=== PATIENT | male | born 1970 | race Caucasian/White ===

== ENCOUNTER 2016-10-08 10:36 | Emergency (ER) | payer SELFPAY ==
[~2016-10-08] VITALS: Ht 185.4 cm; Wt 93.2 kg
[2016-10-08 11:03] VITALS: BP 139/103
[2016-10-08] MEDS ORDERED: LISI-662 PO (11:17)
[2016-10-08] MEDS ORDERED: METF500T4 PO (11:17)
[2016-10-08] MEDS ORDERED: CLOP75 PO (11:17)
[2016-10-08] MEDS ORDERED: METO50 PO (11:17)
== END 2016-10-08 12:16 | disposition left against medical advice (07) ==
LOC: EMS 10:38
DX: H57.12 Ocular pain, left eye (principal); H53.8 Other visual disturbances; E11.9 Type 2 diabetes mellitus without complications; I10 Essential (primary) hypertension; F17.210 Nicotine dependence, cigarettes, uncomplicated; Z53.21 Procedure and treatment not carried out due to patient leaving prior to being seen by health care provider

== ENCOUNTER 2016-10-12 21:20 | Emergency (ER) | payer OTHER ==
[~2016-10-12] VITALS: Ht 185.4 cm; Wt 93.2 kg
[~2016-10-12 21:20] MED LIST: CLOP75 PO; LISI-662 PO; METF500T4 PO; METO50 PO
[2016-10-12] MEDS ORDERED: ASPI-556 PO (21:30)
[2016-10-12] MEDS ORDERED: PRED20 PO (21:30)
[2016-10-12 21:48] LABS: ADD UA MICROSCOPIC YES; APPEARANCE,URINE CLEAR (CLEAR); GLUCOSE, URINE (UA) 500 mg/dL (NEGATIVE); KETONES,URINE NEGATIVE (NEGATIVE); LEUKOCYTE ESTERASE ,URINE NEGATIVE (NEGATIVE); OCCULT BLOOD,URINE NEGATIVE (NEGATIVE); PROTEIN,URINE POS 1+ (NEGATIVE)
[2016-10-12 21:52] LABS: GLUCOSE,POINT OF CARE 154 MG/DL (70-110)
[2016-10-12 21:56] LABS: RBC,URINE None Seen /HPF (0-2); SQUAMOUS EPITHELIAL CELL,UR Rare /LPF (None Seen); WBC,URINE None Seen /HPF (0-5)
[2016-10-12] MEDS ORDERED: ACTIVATED CHARCOAL 50 GM/240 ML SUSPENSION PO ONE (22:00)
[2016-10-12] MEDS ORDERED: SODIUM CHLORIDE 0.9% 1,000 ML IV ONE (22:00)
[2016-10-12 22:03] LABS: BASOPHILS % (AUTO) 0.7 % (0.0-2.0); EOSINOPHILS % (AUTO) 1.4 % (1.0-6.0); LYMPHOCYTES # (AUTO) 1.5 K/uL (1.0-4.8); LYMPHOCYTES % (AUTO) 17.7 % (22.0-44.0); MEAN CORPUSCULAR HEMOGLOBIN 27.9 pg (26.0-34.0); MEAN CORPUSCULAR HGB CONC 32.3 G/dL (31.0-37.0); MEAN CORPUSCULAR VOLUME 86 fL (80-100); MONOCYTES # (AUTO) 0.5 K/uL (0.1-1.0); MONOCYTES % (AUTO) 5.4 % (2.0-9.0); NEUTROPHILS # (AUTO) 6.3 K/uL (1.8-7.7); NEUTROPHILS % (AUTO) 74.8 % (40.0-70.0); PLATELET COUNT (AUTO) 371 K/uL (150-450); RED BLOOD CELL COUNT(AUTO) 4.28 MIL/uL (4.50-5.90); RED CELL DISTRIBUTION WIDTH 14.2 % (11.5-14.5); WHITE BLOOD COUNT (AUTO) 8.5 K/uL (4.5-11.0)
[2016-10-12 22:13] LABS: ANION GAP 5 mmol/L (8-16); CARBON DIOXIDE 31 mmol/L (22-29); CHLORIDE 104 mmol/L (98-107); CREATININE 0.93 mg/dL (0.60-1.30); GLOMERULAR FILTR. RATE CALC > 60 mL/min (>60); POTASSIUM 3.6 mmol/L (3.5-5.1); SODIUM SERUM 140 mmol/L (136-145); UREA NITROGEN, BLOOD 8 mg/dL (7-18)
[2016-10-12 22:27] LABS: SALICYLATE 1.8 mg/dL (2.8-20.0)
[2016-10-12 22:38] LABS: ALANINE AMINOTRANSFERASE 26 U/L (12-78); ALBUMIN 3.6 g/dL (3.4-5.0); ASPARTATE AMINOTRANSFERASE 17 U/L (15-37); BILIRUBIN,TOTAL 0.4 mg/dL (0.1-1.0); CREATINE KINASE, TOTAL 80 U/L (39-308)
[2016-10-12 22:38] LABS: ALLEN TEST, BLOOD GAS POS; HCO3,VENOUS BLOOD GAS 24.3 (21.0-28.0); PCO2,VENOUS BLOOD GAS 40 (40-45); PH,VENOUS BLOOD GAS 7.412 (7.360-7.410); TEMPERATURE, FAHRENHEIT, BG 98.4 FAHREN (96.0-98.6); TOTAL HEMOGLOBIN,VENOUS BGAS 11.6 (12.0-18.0)
[2016-10-12 22:39] LABS: ACETAMINOPHEN < 2 mcg/mL (10-30); CREATINE KINASE MB < 0.5 ng/mL (0-5)
[2016-10-13] MEDS ORDERED: LORazepam 2 MG/ML VIAL IVP ONE (01:00)
[2016-10-13 01:19] LABS: ALANINE AMINOTRANSFERASE 26 U/L (12-78); ALBUMIN 3.2 g/dL (3.4-5.0); ANION GAP 7 mmol/L (8-16); ASPARTATE AMINOTRANSFERASE 19 U/L (15-37); BILIRUBIN,TOTAL 0.3 mg/dL (0.1-1.0); CALCIUM, TOTAL 8.6 mg/dL (8.8-10.5); CARBON DIOXIDE 28 mmol/L (22-29); CHLORIDE 105 mmol/L (98-107); CREATININE 0.86 mg/dL (0.60-1.30); GLOMERULAR FILTR. RATE CALC > 60 mL/min (>60); POTASSIUM 4.1 mmol/L (3.5-5.1); SODIUM SERUM 140 mmol/L (136-145); TOTAL PROTEIN, SERUM 8.2 g/dL (6.4-8.2); UREA NITROGEN, BLOOD 8 mg/dL (7-18)
[2016-10-13 01:25] LABS: SALICYLATE < 2.8 mg/dL (2.8-20.0)
[2016-10-13 02:12] VITALS: BP 141/76
== END 2016-10-13 02:13 | disposition home or self-care (01) ==
LOC: EMS 21:21
DX: T39.012A Poisoning by aspirin, intentional self-harm, initial encounter (principal); T38.0X2A Poisoning by glucocorticoids and synthetic analogues, intentional self-harm, initial encounter; I11.0 Hypertensive heart disease with heart failure; I50.9 Heart failure, unspecified; E11.9 Type 2 diabetes mellitus without complications; F31.9 Bipolar disorder, unspecified; F17.210 Nicotine dependence, cigarettes, uncomplicated; Z95.1 Presence of aortocoronary bypass graft; Z79.82 Long term (current) use of aspirin; Y92.89 Other specified places as the place of occurrence of the external cause
CPT/HCPCS: 36415; 71010; 80053; 80307; 81001; 82550; 82553; 82805; 82962; 84484; 85025; 93005; 96361; 96374; 99285; G0480 ×2; J2060; J7030; G0481

== ENCOUNTER 2017-05-08 18:57 | Emergency (ER) | payer MEDICAID, OTHER ==
[~2017-05-08] VITALS: Ht 188 cm; Wt 84.1 kg
[~2017-05-08 18:57] MED LIST changes: +ARIP10TA8 PO; +ASPI-556 PO; +FERR-89 PO; +MIRT15 PO; +VITAD1000 PO
[2017-05-08] MEDS ORDERED: LISINOPRIL 10 MG TABLET PO ONE (19:15)
[2017-05-08] MEDS ORDERED: BACITRACIN 0.9 GM PACKET OINTMENT TP ONE (19:15)
[2017-05-08] MEDS ORDERED: OxyCODONE HCL/ACETAMINOPHEN 5-325 MG TABLET PO ONE (19:15)
[2017-05-08] MEDS ORDERED: LORazepam 2 MG TABLET PO ONE (19:15)
[2017-05-08 19:23] LABS: GLUCOSE,POINT OF CARE 134 MG/DL (70-110)
[2017-05-08] MEDS ORDERED: ONDANSETRON HCL 4 MG/2 ML VIAL IM ONE (19:45)
[2017-05-08] MEDS ORDERED: METOPROLOL TARTRATE 50 MG TABLET PO ONE (20:15)
[2017-05-08 22:10] VITALS: BP 152/92
[2017-05-09] MEDS ORDERED: METO25 PO (11:27)
== END 2017-05-08 23:54 | disposition home or self-care (01) ==
LOC: EMS 19:00
DX: F31.9 Bipolar disorder, unspecified (principal); I10 Essential (primary) hypertension; E11.9 Type 2 diabetes mellitus without complications; I25.10 Atherosclerotic heart disease of native coronary artery without angina pectoris; I11.0 Hypertensive heart disease with heart failure; I50.9 Heart failure, unspecified; F17.210 Nicotine dependence, cigarettes, uncomplicated; F11.90 Opioid use, unspecified, uncomplicated; Z91.19 Patient's noncompliance with other medical treatment and regimen; Z02.89 Encounter for other administrative examinations; Z88.0 Allergy status to penicillin; Z95.5 Presence of coronary angioplasty implant and graft; Z88.2 Allergy status to sulfonamides; Z79.82 Long term (current) use of aspirin
CPT/HCPCS: 82962; 96372; 99285; J2405; 96360

== ENCOUNTER 2017-05-08 19:00 | Inpatient (IN) | payer MEDICAID ==
[~2017-05-08] VITALS: Ht 185.4 cm; Wt 80.3 kg
[~2017-05-08 19:00] MED LIST changes: +INFLUENZA VIRUS VACCINE QVS 2017-18 (3YR+)/PF 60 MCG/0.5 ML SYRINGE IM ONE
[2017-05-09] MEDS ORDERED: ZOLPIDEM TARTRATE 10 MG TABLET PO PRN (01:00)
[2017-05-09] MEDS ORDERED: HALOPERIDOL 5 MG TABLET PO PRN (01:00)
[2017-05-09 01:14] VITALS: BP 141/76
[2017-05-09 01:29] VITALS: BP 141/76
[2017-05-09] MEDS: LORazepam 2 MG TABLET PO PRN ×2 (02:54→17:15)
[2017-05-09 05:45] LABS: BASOPHILS # (AUTO) 0.09 K/uL (0.00-0.20); BASOPHILS % (AUTO) 0.8 % (0.0-2.0); EOSINOPHILS # (AUTO) 0.05 K/uL (0.00-0.70); EOSINOPHILS % (AUTO) 0.49 % (1.0-6.0); HEMATOCRIT 37.7 % (41-53); HEMOGLOBIN 12.3 g/dL (13.5-17.5); LYMPHOCYTES # (AUTO) 1.7 K/uL (1.0-4.8); LYMPHOCYTES % (AUTO) 15.1 % (22.0-44.0); MEAN CORPUSCULAR HEMOGLOBIN 27.3 pg (26.0-34.0); MEAN CORPUSCULAR HGB CONC 32.6 G/dL (31.0-37.0); MEAN CORPUSCULAR VOLUME 84 fL (80-100); MONOCYTES # (AUTO) 0.6 K/uL (0.1-1.0); MONOCYTES % (AUTO) 5.2 % (2.0-9.0); NEUTROPHILS # (AUTO) 8.8 K/uL (1.8-7.7); NEUTROPHILS % (AUTO) 78.4 % (40.0-70.0); PLATELET COUNT (AUTO) 356 K/uL (150-450); RED BLOOD CELL COUNT(AUTO) 4.51 MIL/uL (4.50-5.90)
[2017-05-09 06:15] LABS: ALANINE AMINOTRANSFERASE 32 U/L (12-78); ALBUMIN 3.2 g/dL (3.4-5.0); ALKALINE PHOSPHATASE 127 U/L (46-116); ANION GAP 6 mmol/L (8-16); ASPARTATE AMINOTRANSFERASE 19 U/L (15-37); BILIRUBIN,TOTAL 0.6 mg/dL (0.1-1.0); CALCIUM, TOTAL 8.7 mg/dL (8.8-10.5); CARBON DIOXIDE 28 mmol/L (22-29); CHLORIDE 101 mmol/L (98-107); CHOL/HDL RATIO 4.5 (4.2-7.3); CHOLESTEROL 191 mg/dL (131-200); CREATININE 0.65 mg/dL (0.60-1.30); GLOMERULAR FILTR. RATE CALC > 60 mL/min (>60); GLUCOSE,RANDOM 117 mg/dL (70-110); HDL CHOLESTEROL 42 mg/dL (40-60); LDL CHOL (CALC.) 137 mg/dL (0-130); POTASSIUM 3.9 mmol/L (3.5-5.1); SODIUM SERUM 135 mmol/L (136-145); TOTAL PROTEIN, SERUM 7.3 g/dL (6.4-8.2); TRIGLYCERIDES 60 mg/dL (15-150); UREA NITROGEN, BLOOD 12 mg/dL (7-18)
[2017-05-09] MEDS: MetFORMIN HCL 500 MG TABLET PO SCH ×2 (06:43→17:09)
[2017-05-09] MEDS: FERROUS SULFATE 325 MG EC TABLET PO SCH ×2 (06:43→17:09)
[2017-05-09] MEDS ORDERED: DEXTROSE 50%-WATER 25 GM/50 ML SYG IVP PRN (07:15)
[2017-05-09] MEDS ORDERED: INSULIN ASPART 100 UNITS/ML SQ PRN (07:15)
[2017-05-09] MEDS ORDERED: GLUCAGON,HUMAN RECOMBINANT 1 MG VIAL IM PRN (07:15)
[2017-05-09 08:30] VITALS: BP 102/59
[2017-05-09] MEDS: CLOPIDOGREL BISULFATE 75 MG TABLET PO SCH (08:30)
[2017-05-09] MEDS: LISINOPRIL 20 MG TABLET PO SCH (08:31)
[2017-05-09] MEDS: CHOLECALCIFEROL (VIT D3) 1,000 UNITS TABLET PO SCH (08:31)
[2017-05-09] MEDS: ASPIRIN 81 MG CHEWABLE TABLET PO SCH (08:32)
[2017-05-09] MEDS: METOPROLOL TARTRATE 25 MG TABLET PO SCH (08:32)
[2017-05-09] MEDS: ARIPiprazole 10 MG TABLET PO SCH ×2 (09:00→11:43)
[2017-05-09] MEDS ORDERED: METO25 PO (11:27)
[2017-05-09] MEDS: CEPHALEXIN MONOHYDRATE 500 MG CAPSULE PO SCH ×2 (12:29→17:09)
[2017-05-09 14:01] VITALS: BP 138/74
[2017-05-09] MEDS ORDERED: ACETAMINOPHEN 325 MG TABLET PO PRN (14:15)
[2017-05-09] MEDS ORDERED: SULFAMETHOX/TRIMETH DS 800-160 MG/TABLET PO SCH (17:00)
[2017-05-09 17:10] VITALS: BP 110/61
[2017-05-09 17:28] LABS: GLUCOMETER DEV NAME(LOC) 3EI B; GLUCOSE,POINT OF CARE 94 MG/DL (70-110)
[2017-05-09] MEDS ORDERED: IBUPROFEN 400 MG TABLET PO PRN (17:30)
[2017-05-09] MEDS: INSULIN ASPART 100 UNITS/ML SQ PRN (17:37)
[2017-05-09] MEDS ORDERED: MIRTAZAPINE 15 MG TABLET PO SCH (21:00)
[2017-05-10 04:15] VITALS: BP 102/53
[2017-05-10 06:23] LABS: GLUCOMETER DEV NAME(LOC) 3EI B; GLUCOSE,POINT OF CARE 87 MG/DL (70-110)
[2017-05-10] MEDS: FERROUS SULFATE 325 MG EC TABLET PO SCH (06:32)
[2017-05-10] MEDS: MetFORMIN HCL 500 MG TABLET PO SCH (06:32)
[2017-05-10] MEDS: METOPROLOL TARTRATE 25 MG TABLET PO SCH (09:00)
[2017-05-10] MEDS: LISINOPRIL 20 MG TABLET PO SCH (09:00)
[2017-05-10 10:15] VITALS: BP 98/56
[2017-05-10] MEDS: ASPIRIN 81 MG CHEWABLE TABLET PO SCH (10:21)
[2017-05-10] MEDS: ARIPiprazole 10 MG TABLET PO SCH (10:21)
[2017-05-10] MEDS: CLOPIDOGREL BISULFATE 75 MG TABLET PO SCH (10:21)
[2017-05-10] MEDS: CHOLECALCIFEROL (VIT D3) 1,000 UNITS TABLET PO SCH (10:22)
[2017-05-10] MEDS: CEPHALEXIN MONOHYDRATE 500 MG CAPSULE PO SCH ×2 (10:22→13:19)
[2017-05-10] MEDS ORDERED: MULTIVITAMINS WITH MINERALS, THERAPEUTIC TABLET PO SCH (11:30)
[2017-05-10 11:59] LABS: GLUCOMETER DEV NAME(LOC) 3EI B; GLUCOSE,POINT OF CARE 87 MG/DL (70-110)
[2017-05-10] MEDS: INSULIN ASPART 100 UNITS/ML SQ PRN (13:25)
== END 2017-05-10 15:37 | disposition short-term general hospital (02) | DRG 754 ==
LOC: EDSTATUS 19:00 → 3EI 22:49 → EDSTATUS 23:23
PROVIDERS: ADMIT Psychiatry & Neurology Child & Adolescent Psychiatry; ATTEND Psychiatry & Neurology Child & Adolescent Psychiatry
DX: F32.9 Major depressive disorder, single episode, unspecified (principal); E11.9 Type 2 diabetes mellitus without complications; I10 Essential (primary) hypertension; E78.5 Hyperlipidemia, unspecified; I25.10 Atherosclerotic heart disease of native coronary artery without angina pectoris; W34.00XA Accidental discharge from unspecified firearms or gun, initial encounter; Z79.02 Long term (current) use of antithrombotics/antiplatelets; Z79.82 Long term (current) use of aspirin; Z95.1 Presence of aortocoronary bypass graft; Z95.5 Presence of coronary angioplasty implant and graft; Z88.0 Allergy status to penicillin; Z88.2 Allergy status to sulfonamides
CPT/HCPCS: 82962; 87081; 90471

== ENCOUNTER 2017-05-10 16:00 | Inpatient (IN) | payer OTHER ==
[~2017-05-10] VITALS: Ht 185.4 cm; Wt 80.9 kg
[~2017-05-10 16:00] MED LIST changes: -INFLUENZA VIRUS VACCINE QVS 2017-18 (3YR+)/PF 60 MCG/0.5 ML SYRINGE IM ONE; +METO25 PO; -METO50 PO
[2017-05-10 16:21] VITALS: BP 119/70
[2017-05-10] MEDS ORDERED: SODIUM CHLORIDE 0.9% 1,000 ML IV ONE ×2 (17:15→17:45)
[2017-05-10] MEDS: OxyCODONE HCL/ACETAMINOPHEN 5-325 MG TABLET PO PRN (17:40)
[2017-05-10 17:42] LABS: BASOPHILS % (AUTO) 0.8 % (0.0-2.0); EOSINOPHILS % (AUTO) 2.5 % (1.0-6.0); HEMATOCRIT 35.9 % (41-53); LYMPHOCYTES # (AUTO) 1.9 K/uL (1.0-4.8); LYMPHOCYTES % (AUTO) 26.8 % (22.0-44.0); MEAN CORPUSCULAR HEMOGLOBIN 27.8 pg (26.0-34.0); MEAN CORPUSCULAR HGB CONC 33.5 G/dL (31.0-37.0); MEAN CORPUSCULAR VOLUME 83 fL (80-100); MONOCYTES # (AUTO) 0.5 K/uL (0.1-1.0); NEUTROPHILS # (AUTO) 4.4 K/uL (1.8-7.7); NEUTROPHILS % (AUTO) 62.9 % (40.0-70.0); PLATELET COUNT (AUTO) 337 K/uL (150-450); RED BLOOD CELL COUNT(AUTO) 4.33 MIL/uL (4.50-5.90); RED CELL DISTRIBUTION WIDTH 15.4 % (11.5-14.5)
[2017-05-10] MEDS ORDERED: ONDANSETRON HCL 4 MG/2 ML VIAL IVP PRN (17:45)
[2017-05-10] MEDS ORDERED: BISACODYL 10 MG RECTAL RECTAL SUPPOSITORY PR PRN (17:45)
[2017-05-10] MEDS ORDERED: MAGNESIUM HYDROXIDE SUSPENSION 30 ML UDCUP PO PRN (17:45)
[2017-05-10] MEDS ORDERED: ACETAMINOPHEN 325 MG TABLET PO PRN (17:45)
[2017-05-10 17:52] LABS: ANION GAP 5 mmol/L (8-16); CALCIUM, TOTAL 8.5 mg/dL (8.8-10.5); CARBON DIOXIDE 28 mmol/L (22-29); CHLORIDE 100 mmol/L (98-107); CREATININE 0.82 mg/dL (0.60-1.30); GLOMERULAR FILTR. RATE CALC > 60 mL/min (>60); POTASSIUM 3.6 mmol/L (3.5-5.1); SODIUM SERUM 133 mmol/L (136-145); UREA NITROGEN, BLOOD 21 mg/dL (7-18)
[2017-05-10 19:30] VITALS: BP 107/65
[2017-05-10] MEDS: ZOLPIDEM TARTRATE 5 MG TABLET PO PRN (21:58)
[2017-05-10] MEDS: DOCUSATE SODIUM 100 MG CAPSULE PO SCH (21:58)
[2017-05-10 23:12] VITALS: BP 101/53
[2017-05-11 04:00] VITALS: BP 101/48
[2017-05-11] MEDS ORDERED: LORazepam 2 MG TABLET PO ONE (04:45)
[2017-05-11] MEDS ORDERED: SODIUM CHLORIDE 0.9% 1,000 ML IV ONE (07:15)
[2017-05-11 07:30] VITALS: BP 101/52
[2017-05-11] MEDS: DOCUSATE SODIUM 100 MG CAPSULE PO SCH ×2 (08:16→20:12)
[2017-05-11] MEDS: PANTOPRAZOLE SODIUM 40 MG DR TABLET PO SCH (08:16)
[2017-05-11] MEDS: LORazepam 2 MG/ML VIAL IVP PRN ×2 (08:16→16:20)
[2017-05-11 10:03] LABS: APPEARANCE,URINE CLEAR (CLEAR); GLUCOSE, URINE (UA) NEGATIVE (NEGATIVE); KETONES,URINE NEGATIVE (NEGATIVE); LEUKOCYTE ESTERASE ,URINE NEGATIVE (NEGATIVE); OCCULT BLOOD,URINE NEGATIVE (NEGATIVE); PROTEIN,URINE NEGATIVE (NEGATIVE)
[2017-05-11 10:05] LABS: ADD UA MICROSCOPIC NO
[2017-05-11 12:49] VITALS: BP 109/61
[2017-05-11] MEDS: ARIPiprazole 10 MG TABLET PO SCH (13:28)
[2017-05-11] MEDS ORDERED: INFLUENZA VIRUS VACCINE QVS 2017-18 (3YR+)/PF 60 MCG/0.5 ML SYRINGE IM ONE (14:15)
[2017-05-11 16:27] VITALS: BP 117/62
[2017-05-11 19:50] VITALS: BP 120/55
[2017-05-11] MEDS: MIRTAZAPINE 15 MG TABLET PO SCH (20:13)
[2017-05-12 00:15] VITALS: BP 121/62
[2017-05-12 03:30] VITALS: BP 118/60
[2017-05-12 06:48] LABS: ANION GAP 8 mmol/L (8-16); CALCIUM, TOTAL 8.5 mg/dL (8.8-10.5); CARBON DIOXIDE 28 mmol/L (22-29); CHLORIDE 104 mmol/L (98-107); GLOMERULAR FILTR. RATE CALC > 60 mL/min (>60); POTASSIUM 3.8 mmol/L (3.5-5.1); SODIUM SERUM 140 mmol/L (136-145); THYROID STIMULATING HORMONE 1.55 uIU/mL (0.36-3.74); UREA NITROGEN, BLOOD 15 mg/dL (7-18)
[2017-05-12 07:06] LABS: BASOPHILS # (AUTO) 0.07 K/uL (0.00-0.20); BASOPHILS % (AUTO) 0.9 % (0.0-2.0); EOSINOPHILS # (AUTO) 0.23 K/uL (0.00-0.70); EOSINOPHILS % (AUTO) 3.22 % (1.0-6.0); HEMATOCRIT 34.8 % (41-53); HEMOGLOBIN 11.5 g/dL (13.5-17.5); LYMPHOCYTES # (AUTO) 2.3 K/uL (1.0-4.8); LYMPHOCYTES % (AUTO) 31.8 % (22.0-44.0); MEAN CORPUSCULAR HEMOGLOBIN 27.7 pg (26.0-34.0); MEAN CORPUSCULAR HGB CONC 32.9 G/dL (31.0-37.0); MEAN CORPUSCULAR VOLUME 84 fL (80-100); MONOCYTES # (AUTO) 0.6 K/uL (0.1-1.0); MONOCYTES % (AUTO) 7.7 % (2.0-9.0); NEUTROPHILS # (AUTO) 4.1 K/uL (1.8-7.7); NEUTROPHILS % (AUTO) 56.3 % (40.0-70.0); PLATELET COUNT (AUTO) 301 K/uL (150-450); RED BLOOD CELL COUNT(AUTO) 4.14 MIL/uL (4.50-5.90); WHITE BLOOD COUNT (AUTO) 7.3 K/uL (4.5-11.0)
[2017-05-12 07:47] VITALS: BP 137/83
[2017-05-12] MEDS: PANTOPRAZOLE SODIUM 40 MG DR TABLET PO SCH (08:15)
[2017-05-12] MEDS: ARIPiprazole 10 MG TABLET PO SCH (08:15)
[2017-05-12] MEDS: DOCUSATE SODIUM 100 MG CAPSULE PO SCH ×2 (08:15→19:59)
[2017-05-12] MEDS: LORazepam 2 MG/ML VIAL IVP PRN ×2 (08:39→16:53)
[2017-05-12 15:35] VITALS: BP 129/70
[2017-05-12] MEDS ORDERED: DSS100 PO (16:02)
[2017-05-12] MEDS: MIRTAZAPINE 15 MG TABLET PO SCH (19:59)
[2017-05-12 20:04] VITALS: BP 109/56
[2017-05-12] MEDS: OxyCODONE HCL/ACETAMINOPHEN 5-325 MG TABLET PO PRN (22:45)
[2017-05-12] MEDS: ZOLPIDEM TARTRATE 5 MG TABLET PO PRN (22:45)
[2017-05-13] MEDS: LORazepam 2 MG/ML VIAL IVP PRN ×2 (01:14→08:40)
[2017-05-13 06:03] LABS: ANION GAP 6 mmol/L (8-16); CALCIUM, TOTAL 8.6 mg/dL (8.8-10.5); CARBON DIOXIDE 28 mmol/L (22-29); CHLORIDE 104 mmol/L (98-107); GLOMERULAR FILTR. RATE CALC > 60 mL/min (>60); POTASSIUM 3.7 mmol/L (3.5-5.1); SODIUM SERUM 138 mmol/L (136-145); UREA NITROGEN, BLOOD 15 mg/dL (7-18)
[2017-05-13] MEDS: DOCUSATE SODIUM 100 MG CAPSULE PO SCH (08:35)
[2017-05-13] MEDS: PANTOPRAZOLE SODIUM 40 MG DR TABLET PO SCH (08:35)
[2017-05-13] MEDS: ARIPiprazole 10 MG TABLET PO SCH (08:36)
[2017-05-13 11:45] VITALS: BP 109/67
[2017-05-13] MEDS: OxyCODONE HCL/ACETAMINOPHEN 5-325 MG TABLET PO PRN (15:09)
[2017-05-13 15:18] VITALS: BP 95/68
[2017-05-13 19:26] VITALS: BP 114/73
== END 2017-05-13 19:45 | DRG 207 ==
LOC: 6N 16:00
PROVIDERS: ADMIT Internal Medicine; ATTEND Internal Medicine
DX: I95.9 Hypotension, unspecified (principal); F33.3 Major depressive disorder, recurrent, severe with psychotic symptoms; R45.851 Suicidal ideations; I10 Essential (primary) hypertension; E11.9 Type 2 diabetes mellitus without complications; E78.5 Hyperlipidemia, unspecified; I25.10 Atherosclerotic heart disease of native coronary artery without angina pectoris; F19.10 Other psychoactive substance abuse, uncomplicated; F41.9 Anxiety disorder, unspecified; Z95.5 Presence of coronary angioplasty implant and graft; Z95.1 Presence of aortocoronary bypass graft; Z59.0 Homelessness; Z80.0 Family history of malignant neoplasm of digestive organs; Z88.0 Allergy status to penicillin; Z88.2 Allergy status to sulfonamides; Z79.02 Long term (current) use of antithrombotics/antiplatelets; Z79.82 Long term (current) use of aspirin; Z79.899 Other long term (current) drug therapy; Z84.89 Family history of other specified conditions
CPT/HCPCS: 84443; 90471; J2060; J7030

== ENCOUNTER 2017-05-13 19:03 | Inpatient (IN) | payer MEDICAID ==
[~2017-05-13] VITALS: Ht 185.4 cm; Wt 79.9 kg
[~2017-05-13 19:03] MED LIST changes: +DSS100 PO
[2017-05-13] MEDS: MIRTAZAPINE 30 MG TABLET PO SCH (20:09)
[2017-05-13] MEDS: BusPIRone HCL 5 MG TABLET PO SCH (20:09)
[2017-05-13] MEDS ORDERED: IBUPROFEN 600 MG TABLET PO PRN (21:00)
[2017-05-13] MEDS ORDERED: MAGNESIUM HYDROXIDE SUSPENSION 30 ML UDCUP PO PRN (21:00)
[2017-05-13] MEDS ORDERED: BISACODYL 5 MG EC TABLET PO PRN (21:00)
[2017-05-13 21:26] VITALS: BP 105/68
[2017-05-13] MEDS: ZOLPIDEM TARTRATE 10 MG TABLET PO PRN (21:36)
[2017-05-13] MEDS: LORazepam 2 MG TABLET PO PRN (21:36)
[2017-05-13 23:30] VITALS: BP 164/116
[2017-05-13] MEDS: HALOPERIDOL 5 MG TABLET PO PRN (23:52)
[2017-05-14 03:00] VITALS: BP 176/113
[2017-05-14] MEDS: LORazepam 2 MG TABLET PO PRN (03:12)
[2017-05-14 05:22] VITALS: BP 158/94
[2017-05-14] MEDS ORDERED: ONDANSETRON HCL 4 MG TABLET PO PRN (05:45)
[2017-05-14] MEDS ORDERED: CloNIDine HCL 0.1 MG TABLET PO PRN (05:45)
[2017-05-14] MEDS: DOCUSATE SODIUM 100 MG CAPSULE PO SCH ×2 (08:52→17:27)
[2017-05-14] MEDS: BusPIRone HCL 5 MG TABLET PO SCH ×3 (08:52→17:27)
[2017-05-14] MEDS: PANTOPRAZOLE SODIUM 40 MG DR TABLET PO SCH (08:52)
[2017-05-14] MEDS: ARIPiprazole 10 MG TABLET PO SCH (08:52)
[2017-05-14] MEDS: NICOTINE 21 MG/24 HOUR PATCH TD SCH (08:57)
[2017-05-14] MEDS: HALOPERIDOL 5 MG TABLET PO PRN ×2 (09:01→23:25)
[2017-05-14] MEDS: AmLODIPine BESYLATE 5 MG TABLET PO SCH (09:02)
[2017-05-14 17:22] VITALS: BP 124/79
[2017-05-14] MEDS: MIRTAZAPINE 30 MG TABLET PO SCH (21:25)
[2017-05-14] MEDS: ZOLPIDEM TARTRATE 10 MG TABLET PO PRN (23:25)
[2017-05-15 07:23] LABS: ANION GAP 6 mmol/L (8-16); CALCIUM, TOTAL 9.2 mg/dL (8.8-10.5); CARBON DIOXIDE 29 mmol/L (22-29); CHLORIDE 106 mmol/L (98-107); CHOL/HDL RATIO 4.7 (4.2-7.3); CREATININE 0.81 mg/dL (0.60-1.30); GLOMERULAR FILTR. RATE CALC > 60 mL/min (>60); POTASSIUM 3.9 mmol/L (3.5-5.1); SODIUM SERUM 141 mmol/L (136-145); UREA NITROGEN, BLOOD 18 mg/dL (7-18)
[2017-05-15 08:15] VITALS: BP 99/57
[2017-05-15] MEDS: BusPIRone HCL 5 MG TABLET PO SCH ×3 (08:34→16:55)
[2017-05-15] MEDS: AmLODIPine BESYLATE 5 MG TABLET PO SCH (08:34)
[2017-05-15] MEDS: ARIPiprazole 10 MG TABLET PO SCH (08:34)
[2017-05-15] MEDS: PANTOPRAZOLE SODIUM 40 MG DR TABLET PO SCH (08:34)
[2017-05-15] MEDS: DOCUSATE SODIUM 100 MG CAPSULE PO SCH ×2 (08:34→16:55)
[2017-05-15] MEDS: NICOTINE 21 MG/24 HOUR PATCH TD SCH (08:35)
[2017-05-15] MEDS: HALOPERIDOL 5 MG TABLET PO PRN ×2 (15:56→21:12)
[2017-05-15 19:24] VITALS: BP 105/70
[2017-05-15] MEDS: MIRTAZAPINE 30 MG TABLET PO SCH (21:12)
[2017-05-16] MEDS: AmLODIPine BESYLATE 5 MG TABLET PO SCH (09:00)
[2017-05-16 09:45] VITALS: BP 91/64
[2017-05-16] MEDS: PANTOPRAZOLE SODIUM 40 MG DR TABLET PO SCH (09:49)
[2017-05-16] MEDS: ARIPiprazole 10 MG TABLET PO SCH (09:49)
[2017-05-16] MEDS: DOCUSATE SODIUM 100 MG CAPSULE PO SCH ×2 (09:49→16:03)
[2017-05-16] MEDS: BusPIRone HCL 5 MG TABLET PO SCH ×3 (09:49→16:03)
[2017-05-16] MEDS: NICOTINE 21 MG/24 HOUR PATCH TD SCH (09:53)
[2017-05-16] MEDS: HALOPERIDOL 5 MG TABLET PO PRN ×3 (09:54→20:16)
[2017-05-16] MEDS: ACETAMINOPHEN 325 MG TABLET PO PRN (16:03)
[2017-05-16 16:04] VITALS: BP 105/69
[2017-05-16] MEDS: MIRTAZAPINE 30 MG TABLET PO SCH (20:15)
[2017-05-16] MEDS: ZOLPIDEM TARTRATE 10 MG TABLET PO PRN (22:37)
[2017-05-17] MEDS: ARIPiprazole 10 MG TABLET PO SCH ×2 (09:00→12:50)
[2017-05-17] MEDS: NICOTINE 21 MG/24 HOUR PATCH TD SCH (09:00)
[2017-05-17] MEDS: DOCUSATE SODIUM 100 MG CAPSULE PO SCH ×3 (09:00→16:37)
[2017-05-17] MEDS: PANTOPRAZOLE SODIUM 40 MG DR TABLET PO SCH ×2 (09:00→12:50)
[2017-05-17] MEDS: BusPIRone HCL 5 MG TABLET PO SCH ×3 (09:00→16:36)
[2017-05-17] MEDS: AmLODIPine BESYLATE 5 MG TABLET PO SCH (09:00)
[2017-05-17] MEDS: ACETAMINOPHEN 325 MG TABLET PO PRN ×2 (12:51→20:38)
[2017-05-17 16:34] VITALS: BP 102/79
[2017-05-17] MEDS: HALOPERIDOL 5 MG TABLET PO PRN ×2 (16:36→20:37)
[2017-05-17] MEDS: MIRTAZAPINE 30 MG TABLET PO SCH (20:37)
[2017-05-17 20:38] VITALS: BP 112/78
[2017-05-17] MEDS: ZOLPIDEM TARTRATE 10 MG TABLET PO PRN (22:17)
[2017-05-18 08:50] VITALS: BP 114/68
[2017-05-18] MEDS: AmLODIPine BESYLATE 5 MG TABLET PO SCH (09:00)
[2017-05-18] MEDS: NICOTINE 21 MG/24 HOUR PATCH TD SCH (09:00)
[2017-05-18] MEDS: PANTOPRAZOLE SODIUM 40 MG DR TABLET PO SCH (09:53)
[2017-05-18] MEDS: ARIPiprazole 10 MG TABLET PO SCH (09:53)
[2017-05-18] MEDS: DOCUSATE SODIUM 100 MG CAPSULE PO SCH ×2 (09:53→17:47)
[2017-05-18] MEDS: BusPIRone HCL 5 MG TABLET PO SCH ×3 (09:53→17:47)
[2017-05-18 16:49] VITALS: BP 115/76
[2017-05-18] MEDS: MIRTAZAPINE 30 MG TABLET PO SCH (21:23)
[2017-05-18] MEDS: ZOLPIDEM TARTRATE 10 MG TABLET PO PRN (21:48)
[2017-05-19] MEDS: BusPIRone HCL 5 MG TABLET PO SCH ×3 (08:58→16:34)
[2017-05-19] MEDS: AmLODIPine BESYLATE 5 MG TABLET PO SCH (08:58)
[2017-05-19] MEDS: ARIPiprazole 10 MG TABLET PO SCH (08:58)
[2017-05-19] MEDS: DOCUSATE SODIUM 100 MG CAPSULE PO SCH ×2 (08:58→16:34)
[2017-05-19] MEDS: PANTOPRAZOLE SODIUM 40 MG DR TABLET PO SCH (08:59)
[2017-05-19] MEDS: NICOTINE 21 MG/24 HOUR PATCH TD SCH (08:59)
[2017-05-19 09:25] VITALS: BP 97/55
[2017-05-19 16:06] VITALS: BP 120/74
[2017-05-19] MEDS: HALOPERIDOL 5 MG TABLET PO PRN ×2 (16:34→21:47)
[2017-05-19] MEDS: MIRTAZAPINE 30 MG TABLET PO SCH (20:25)
[2017-05-19] MEDS: ZOLPIDEM TARTRATE 10 MG TABLET PO PRN (21:47)
[2017-05-20] MEDS ORDERED: ARIP10TA8 PO (00:20)
[2017-05-20] MEDS ORDERED: BUSP5TAB20 PO (00:22)
[2017-05-20] MEDS ORDERED: MIRT30 PO (00:22)
[2017-05-20] MEDS ORDERED: PANT40TA25 PO (06:03)
[2017-05-20] MEDS ORDERED: DSS100 PO (06:03)
[2017-05-20] MEDS ORDERED: AMLO-511 PO (06:04)
[2017-05-20 06:43] VITALS: BP 124/76
[2017-05-20] MEDS: ARIPiprazole 10 MG TABLET PO SCH (07:02)
[2017-05-20] MEDS: AmLODIPine BESYLATE 5 MG TABLET PO SCH (07:02)
[2017-05-20] MEDS: DOCUSATE SODIUM 100 MG CAPSULE PO SCH (07:02)
[2017-05-20] MEDS: BusPIRone HCL 5 MG TABLET PO SCH (07:03)
[2017-05-20] MEDS: PANTOPRAZOLE SODIUM 40 MG DR TABLET PO SCH (07:03)
== END 2017-05-20 07:20 | disposition home or self-care (01) | DRG 751 ==
LOC: 3EI 19:45
PROVIDERS: ADMIT Psychiatry & Neurology Psychiatry; ATTEND Psychiatry & Neurology Psychiatry
DX: F33.3 Major depressive disorder, recurrent, severe with psychotic symptoms (principal); I95.9 Hypotension, unspecified; R45.851 Suicidal ideations; I10 Essential (primary) hypertension; E11.9 Type 2 diabetes mellitus without complications; E78.5 Hyperlipidemia, unspecified; F60.3 Borderline personality disorder; F19.20 Other psychoactive substance dependence, uncomplicated; F41.9 Anxiety disorder, unspecified; S21.209A Unspecified open wound of unspecified back wall of thorax without penetration into thoracic cavity, initial encounter; I25.10 Atherosclerotic heart disease of native coronary artery without angina pectoris; W34.00XA Accidental discharge from unspecified firearms or gun, initial encounter; Z79.02 Long term (current) use of antithrombotics/antiplatelets; Z79.82 Long term (current) use of aspirin; Z91.5 Personal history of self-harm; Z95.1 Presence of aortocoronary bypass graft; Z59.0 Homelessness; Z88.0 Allergy status to penicillin; Z88.2 Allergy status to sulfonamides; Z80.8 Family history of malignant neoplasm of other organs or systems; Z63.9 Problem related to primary support group, unspecified; Z72.89 Other problems related to lifestyle; Z71.51 Drug abuse counseling and surveillance of drug abuser; Z95.5 Presence of coronary angioplasty implant and graft; Y93.89 Activity, other specified; Y92.89 Other specified places as the place of occurrence of the external cause; Y99.8 Other external cause status
CPT/HCPCS: 87081; Q0162